=== PATIENT | male | born 1950 | race Caucasian/White ===

== ENCOUNTER 2018-09-02 17:34 | Emergency (ER) | payer MEDICARE, BC ==
--- NOTE | 2018-09-02 18:24 | EDM.PDOC ---
ED HPI GENERAL MEDICAL PROBLEM - General Stated Complaint: SOB FROM FALL Time Seen by Provider: 09/02/18 18:10 Source of Information: Reports: Patient History Limitations: Reports: No Limitations - History of Present Illness INITIAL COMMENTS - FREE TEXT/NARRATIVE: 68-year-old male who reports that he was putting gas into his vehicle and approximate 5:30 PM and he turned to take a few steps and caught his left leg on the gasoline hose and fell forward striking his central upper chest against the round metal protector that is adjacent to gas pumps. He states that he had immediate pain in the area of his chest. He also has some pain in his left posterior calf. The pain in his chest is rated by him as an 8-9/10 and states it feels like a weight or pressure on his chest. It is worse with movement and with palpation he did not have the chest pain prior to falling. He did not hit his head. There was no loss of consciousness. He did roll off of the metal pipe and landed on his back on the ground. He also has some mild soreness in his left posterior calf that is worse with palpation and movement. He is having no trouble breathing. He has had no hemoptysis. No neck pain. No back pain. No nausea or vomiting. There are no other associated signs or symptoms. There are no other modifying factors. Onset: Today (5:30 PM) Duration: Constant Location: Reports: Chest, Lower Extremity, Left Quality: Reports: Pressure, Sharp, Other (Sore) Severity: Moderate Improves with: Reports: Rest Worsens with: Reports: Other (Palpation), Movement Context: Reports: Trauma (As above) Associated Symptoms: Reports: No Other Symptoms Treatments [employer]: Reports: Other Medication(s) (Took Tylenol #3 prior to coming in.) - Related Data Allergies Allergy/AdvReac Type Severity Reaction Status Date / Time No Known Allergies Allergy Verified 09/02/18 19:04 Past Medical History Cardiovascular History: Reports: High Cholesterol, Hypertension Musculoskeletal History: Reports: Back Pain, Chronic Endocrine/Metabolic History: Reports: Diabetes, Type II (He reports prediabetes) - Past Surgical History GI Surgical History: Reports: Hernia, Inguinal, Other (See Below) ( Hemorrhoidectomy) Male Surgical History: Reports: Prostatectomy Social & Family History - Tobacco Use Smoking Status *Q: Unknown Ever Smoked (Nonsmoker now.) - Alcohol Use Alcohol Use Frequency: Weekly - Living Situation & Occupation Occupation: Retired ([employer]) ED ROS GENERAL - Review of Systems Review Of Systems: See Below Constitutional: Reports: No Symptoms HEENT: Reports: No Symptoms Respiratory: Reports: No Symptoms Cardiovascular: Reports: Chest Pain Endocrine: Reports: No Symptoms GI/Abdominal: Reports: No Symptoms : Reports: No Symptoms Musculoskeletal: Reports: No Symptoms Skin: Reports: No Symptoms Neurological: Reports: No Symptoms Hematologic/Lymphatic: Reports: No Symptoms (No chronic anticoagulation.) Immunologic: Reports: No Symptoms ED EXAM, GENERAL - Physical Exam Exam: See Below Exam Limited By: No Limitations General Appearance: Alert, WD/WN, Mild Distress Eye Exam: Bilateral Eye: EOMI, Normal Inspection Ears: Normal External Exam Ear Exam: Bilateral Ear: Auricle Normal Nose: Normal Inspection, Normal Mucosa, No Blood Throat/Mouth: Normal Oropharynx, Normal Voice, No Airway Compromise Head: Atraumatic, Normocephalic Neck: Normal Inspection, Supple, Non-Tender, Full Range of Motion Respiratory/Chest: No Respiratory Distress, Lungs Clear, Normal Breath Sounds, No Accessory Muscle Use, Chest Non-Tender, Other (Tender to palpation over upper sternal area. There is no crepitus. There is no deformity noted.) Cardiovascular: Normal Peripheral Pulses, Regular Rate, Rhythm, No JVD Peripheral Pulses: 2+: Radial (L), Radial (R) GI/Abdominal: Normal Bowel Sounds, Soft, Non-Tender Back Exam: Normal Inspection, Full Range of Motion Extremities: Normal Inspection, Normal Range of Motion, Non-Tender, No Pedal Edema, Normal Capillary Refill Neurological: Alert, Oriented, CN II-XII Intact, Normal Cognition Psychiatric: Normal Affect Skin Exam: Warm, Dry, Intact, Normal Color, No Rash EKG INTERPRETATION EKG Date: 09/02/18 Time: 18:31 Rhythm: NSR Rate (Beats/Min): 50 [place]: Normal P-Wave: Present QRS: Normal ST-T: Normal QT: Normal Comparison: NA - No Prior EKG EKG Interpretation Comments: Normal EKG. Course - Vital Signs Last Recorded V/S: Last Vital Signs Temp 36.1 C 09/02/18 21:00 Pulse 53 L 09/02/18 21:00 Resp 17 09/02/18 21:00 BP 160/79 H 09/02/18 21:00 Pulse Ox 97 09/02/18 21:00 - Orders/Labs/Meds Orders: Active Orders 24 hr Category Date Time Status EKG Documentation Completion [RC] ASDIRECTED Care 09/02/18 18:24 Active Chest 2V [CR] Stat Exams 09/02/18 18:22 Taken Sternum Min 2V [CR] Stat Exams 09/02/18 18:22 Taken EKG 12 Lead [EK] Routine Ther 09/02/18 18:23 Ordered - Radiology Interpretation Free Text/Narrative:: Chest x-ray PA and lateral shows no acute disease. Sternal x-rays show no acute fracture. - Re-Assessments/Exams Free Text/Narrative Re-Assessment/Exam: 09/02/18 20:30: The EKG was normal. The chest x-ray and sternal x-ray showed no acute fracture or any evidence of acute lung injury. His exam does have tenderness with palpation over his upper sternum and there is pain with movement and I feel that the pain that he is complaining of is related to the trauma. It seems to be a bruise and no fracture or significant injury to his intrathoracic structures. The plan will be for him to have activity as tolerated. He will take the pain medications that he has at home as needed and ibuprofen as needed as well. Departure - Departure Time of Disposition: 20:40 Disposition: Home, Self-Care 01 Condition: Good (Stable) Clinical Impression: Chest wall pain Chest wall contusion Qualifiers: Encounter type: initial encounter Laterality: unspecified laterality Qualified Code(s): S20.219A - Contusion of unspecified front wall of thorax, initial encounter Sternal contusion Qualifiers: Encounter type: initial encounter Qualified Code(s): S20.219A - Contusion of unspecified front wall of thorax, initial encounter - Discharge Information Instructions: Contusion, [id number], Chest Contusion, Adult, [id number] Referrals: Amrita Zavala RN [Primary Care Provider] - Forms: ED Department Discharge Additional Instructions: Your EKG was normal. The chest x-ray showed no acute abnormality. The x-ray of your sternum showed no displaced fracture. You appear to have a bruise to your central chest and sternum. You should take the pain medication the you have at home as needed for more severe pain. You may also take ibuprofen for pain as well. Follow-up with your primary doctor as needed. Back to the emergency department for marked increase in pain, trouble breathing, coughing of blood, abdominal pain or any other concerning sign or symptom. - My Orders Last 24 Hours: My Active Orders 09/02/18 18:22 Chest 2V [CR] Stat Sternum Min 2V [CR] Stat 09/02/18 18:23 EKG 12 Lead [EK] Routine 09/02/18 18:24 EKG Documentation Completion [RC] ASDIRECTED - Assessment/Plan Last 24 Hours: My Active Orders 09/02/18 18:22 Chest 2V [CR] Stat Sternum Min 2V [CR] Stat 09/02/18 18:23 EKG 12 Lead [EK] Routine 09/02/18 18:24 EKG Documentation Completion [RC] ASDIRECTED
--- NOTE | 2018-09-03 15:17 | CR ---
INDICATION: Fall with injury to chest. CHEST: Two PA views and two lateral views of the chest were obtained 09/02/18 - no comparisons. The heart appeared normal in size and shape. Mediastinum and bony thorax appeared to be grossly intact. An active infiltrate, effusion, contusion, or pneumothorax was not identified. IMPRESSION: No acute process. MTDD
--- NOTE | 2018-09-03 15:17 | CR ---
INDICATION: Fall with injury to chest. STERNUM: Five images of the sternum were obtained and revealed no definite sternal fracture site. No dislocation was identified. MTDD
== END 2018-09-02 21:07 | disposition home or self-care (01) ==
LOC: FB.ED 17:34
DX: S20.219A Contusion of unspecified front wall of thorax, initial encounter (principal); M79.662 Pain in left lower leg; E78.00 Pure hypercholesterolemia, unspecified; I10 Essential (primary) hypertension; E11.9 Type 2 diabetes mellitus without complications; W18.39XA Other fall on same level, initial encounter
CPT/HCPCS: 71046; 71120; 93005; 93010; 99283-25; 99284